=== PATIENT | male | born 1980 | race Caucasian/White ===

== ENCOUNTER → 2019-11-12 | Outpatient (CLI) | payer BC ==
[~2019-11-12] MED LIST: NORCO 5-325 TA1 EACH PO; PROAIR HFA8.5 GM
== END ==
LOC: SJCVCIMAG 10-09 11:45
PROVIDERS: ATTEND Internal Medicine
DX: R07.9 Chest pain, unspecified (principal); R00.2 Palpitations; E78.5 Hyperlipidemia, unspecified